=== PATIENT | male | born 1950 | race Asian ===

== ENCOUNTER 2023-07-21 08:46 | Day surgery (SDC) | payer MEDICARE, OTHER ==
[~2023-07-21] VITALS: Ht 170.2 cm; Wt 78.3 kg
[~2023-07-21 08:46] MED LIST: LOSA50
[2023-07-21 10:38] VITALS: BP 104/66
== END 2023-07-21 11:02 | disposition home or self-care (01) ==
LOC: ORSCSDS 08:46
PROVIDERS: Surgery
PROC: 0DBN8ZX Excision of Sigmoid Colon, Via Natural or Artificial Opening Endoscopic, Diagnostic (ICD-10-PCS; principal; 2023-07-21 10:15)
DX: Z12.11 Encounter for screening for malignant neoplasm of colon (principal); D12.5 Benign neoplasm of sigmoid colon; Z86.010 Personal history of colon polyps; K64.8 Other hemorrhoids; G47.33 Obstructive sleep apnea (adult) (pediatric); I10 Essential (primary) hypertension; E78.5 Hyperlipidemia, unspecified; Z79.899 Other long term (current) drug therapy
CPT/HCPCS: 88305; J2704; J7120